=== PATIENT | female | born 1975 | race Caucasian/White ===

== ENCOUNTER → 2017-11-18 | Outpatient (CLI) | payer OTHER ==
[~2017-11-18] MED LIST: ACE3 PO; DEX1 PO; IBU800 PO; LABE100T28 PO; NIFE60TA76 PO; PREN-67 PO
--- NOTE | 2017-11-19 08:35 | RADIOLOGY IMAGING REPORT ---
FACILITY: [facility] PATIENT NAME: DAKOTAH RITTER : [id number] MR: [id number] V: [id number] EXAM DATE: [id number] ORDERING PHYSICIAN: PHAM HERMAN TECHNOLOGIST: Delphine Suazo PROCEDURE:BILATERAL DIGITAL SCREENING MAMMOGRAM WITH CAD ASSISTED INTERPRETATION & 3D TOMOSYNTHESIS COMPARISON:Prior mammograms 06/27/16. INDICATIONS:screening FINDINGS: Dense heterogeneous fibroglandular tissue is seen throughout the breasts. The parenchymal pattern has remained stable allowing for difference in mammographic technique & patient positioning. There is no evidence of malignant appearing mass, malignant appearing calcifications or other secondary sign of malignancy in either breast. DIAGNOSTIC CATEGORY 1--NEGATIVE. RECOMMENDATIONS: ROUTINE MAMMOGRAM AND CLINICAL EVALUATION. IMPRESSION: BIRADS 1: Negative. No significant abnormality is seen. Dictated by: Patricia Maxwell M.D. on 11/18/2017 at 10:05 Transcribed by: LAZARA on 11/18/2017 at 10:15 Approved by: Patricia Maxwell M.D. on 11/19/2017 at 8:34 [facility]
== END ==
LOC: MAMO 01:22
PROVIDERS: ATTEND Obstetrics & Gynecology
DX: Z12.31 Encounter for screening mammogram for malignant neoplasm of breast (principal)
CPT/HCPCS: 77063; 77067